=== PATIENT | male | born 1985 ===

== ENCOUNTER 2018-07-26 08:39 | Emergency (ER) | payer BC ==
[2018-07-26] MEDS ORDERED: Cyclobenzaprine 10 MG Tab PO ONE (09:18)
[2018-07-26] MEDS ORDERED: Ketorolac 60 MG/2 ML SDV IM ONE (09:18)
--- NOTE | 2018-07-26 09:48 | EDM.PDOC ---
ED HPI GENERAL MEDICAL PROBLEM - General Chief Complaint: Back Pain or Injury Stated Complaint: BACK PAIN Time Seen by Provider: 07/26/18 08:49 Source of Information: Reports: Patient History Limitations: Reports: No Limitations - History of Present Illness INITIAL COMMENTS - FREE TEXT/NARRATIVE: History of present illness: []Patient was moving a couch 2 days ago and hurt his lower back. He has pain radiating down his left buttock down to his left posterior knee. He denies any numbness, tingling, urinary or fecal incontinence. Is not had previous back pain prior to this. Review of systems: As per history of present illness and below otherwise all systems reviewed and negative. Past medical history: As per history of present illness and as reviewed below otherwise noncontributory. Surgical history: As per history of present illness and as reviewed below otherwise noncontributory. Social history: No reported history of drug or alcohol abuse. Family history: As per history of present illness and as reviewed below otherwise noncontributory. Physical exam: General: Well developed, well nourished in NAD HEENT: Atraumatic, normocephalic, pupils reactive, negative for conjunctival pallor or scleral icterus, mucous membranes moist, throat clear, neck supple, nontender, trachea midline. Lungs: Clear to auscultation, breath sounds equal bilaterally, chest nontender. Heart: S1S2, regular, negative for clicks, rubs, or JVD. Abdomen: NABS, Soft, nondistended, nontender. Negative for masses or hepatosplenomegaly. Negative for costovertebral tenderness. Pelvis: Stable nontender. Genitourinary: Deferred. Rectal: Deferred. Extremities: Atraumatic, negative for cords or calf pain. Neurovascular unremarkable. Neuro: Awake, alert, oriented. Cranial nerves II through XII unremarkable. Cerebellum unremarkable. Motor and sensory unremarkable throughout. Exam nonfocal. Straight leg raise negative Skin:warm and dry Diagnostics: None Therapeutics: Toradol, Flexeril ED Course: stable Impression: Low back pain with left-sided sciatica Prescriptions: Flexeril, diclofenac Plan: Use ice to back 20-30 minutes at a time frequently, Take meds as directed, follow up with your primary care physician, return to ER if symptoms worsen or change. Definitive disposition and diagnosis as appropriate pending reevaluation and review of above. left back pain Pain Score (Numeric/FACES): 9 - Related Data Allergies Allergy/AdvReac Type Severity Reaction Status Date / Time Sulfa (Sulfonamide Allergy Airway Verified 08/15/15 15:42 Antibiotics) Tightness Home Meds: Home Meds ClonazePAM [KlonoPIN] 1 tab PO DAILY PRN 08/15/15 [History] Lisinopril [Prinivil] 1 tab PO DAILY 08/15/15 [History] Cyclobenzaprine [Flexeril] 10 mg PO BID PRN #12 tab 07/26/18 [Rx] Diclofenac Sodium [Voltaren] 75 mg PO BIDMEALS PRN #20 tab.cr 07/26/18 [Rx] Metoprolol Succinate 50 mg PO DAILY 07/26/18 [History] Past Medical History Cardiovascular History: Reports: Hypertension Musculoskeletal History: Reports: Other (See Below) Other Musculoskeletal History: left shoulder pain since 02/2015 Psychiatric History: Reports: ADD - Infectious Disease History Infectious Disease History: Reports: Chicken Pox - Past Surgical History HEENT Surgical History: Reports: Adenoidectomy, Myringotomy w Tube(s), Tonsillectomy, Other (See Below) Social & Family History - Family History Family Medical History: Noncontributory - Tobacco Use Smoking Status *Q: Former Smoker Used Tobacco, but Quit: Yes Month/Year Tobacco Last Used: 2017 - Recreational Drug Use Recreational Drug Use: No ED ROS GENERAL - Review of Systems Review Of Systems: ROS reveals no pertinent complaints other than HPI. ED EXAM,LOWER BACK PAIN/INJURY - Physical Exam Exam: See Below Course - Vital Signs Last Recorded V/S: Last Vital Signs Temp 98 F 07/26/18 09:06 Pulse 79 07/26/18 09:06 Resp 18 07/26/18 09:06 BP 123/84 07/26/18 09:06 Pulse Ox 100 07/26/18 09:06 - Orders/Labs/Meds Meds: Medications Discontinued Medications Generic Name Dose Route Start Last Admin Trade Name Freq PRN Reason Stop Dose Admin Cyclobenzaprine HCl 10 mg 07/26/18 09:18 07/26/18 09:40 Flexeril PO 07/26/18 09:19 10 mg ONETIME ONE Administration Ketorolac Tromethamine 60 mg 07/26/18 09:18 07/26/18 09:39 Toradol IM 07/26/18 09:19 60 mg ONETIME ONE Administration Departure - Departure Time of Disposition: 10:34 Disposition: Home, Self-Care 01 Condition: Good Clinical Impression: Left sided sciatica - Discharge Information *PRESCRIPTION DRUG MONITORING PROGRAM REVIEWED*: No *COPY OF PRESCRIPTION DRUG MONITORING REPORT IN PATIENT DEXTER: No Prescriptions: Cyclobenzaprine [Flexeril] 10 mg PO BID PRN #12 tab PRN Reason: Pain Diclofenac Sodium [Voltaren] 75 mg PO BIDMEALS PRN #20 tab.cr PRN Reason: Pain Referrals: PCP,None [Primary Care Provider] - Forms: ED Department Discharge Additional Instructions: The following information is given to patients seen in the emergency department who are being discharged to home. This information is to outline your options for follow-up care. We provide all patients seen in our emergency department with a follow-up referral. The need for follow-up, as well as the timing and circumstances, are variable depending upon the specifics of your emergency department visit. If you don't have a primary care physician on staff, we will provide you with a referral. We always advise you to contact your personal physician following an emergency department visit to inform them of the circumstance of the visit and for follow-up with them and/or the need for any referrals to a consulting specialist. The emergency department will also refer you to a specialist when appropriate. This referral assures that you have the opportunity for follow-up care with a specialist. All of these measure are taken in an effort to provide you with optimal care, which includes your follow-up. Under all circumstances we always encourage you to contact your private physician who remains a resource for coordinating your care. When calling for follow-up care, please make the office aware that this follow-up is from your recent emergency room visit. If for any reason you are refused follow-up, please contact the [facility] Emergency Department at and asked to speak to the emergency department charge nurse. Take meds as directed, follow up with your primary care physician, return to ER if symptoms worsen or change. [facility] Primary Care [address] [place] [id number]
[2018-07-26 15:10] VITALS: BP 119/61
== END 2018-07-26 15:07 | disposition home or self-care (01) ==
LOC: MW.ED 08:39
DX: M54.42 Lumbago with sciatica, left side (principal); I10 Essential (primary) hypertension; Z88.2 Allergy status to sulfonamides; Z96.22 Myringotomy tube(s) status; Z98.890 Other specified postprocedural states; Z87.891 Personal history of nicotine dependence
CPT/HCPCS: 96372; 99282; A9270; J1885

== ENCOUNTER 2018-08-03 20:23 | Emergency (ER) | payer BC ==
--- NOTE | 2018-08-03 20:37 | EDM.PDOC ---
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 Otherwise worsened by movement He was seen in the ER on 07/26/2018 prescribed Flexeril and diclofenac No fever nausea vomiting chills sweats no footdrop saddle anesthesia or bowel or urine symptoms ] Review of systems: As per history of present illness and below otherwise all systems reviewed and negative. Past medical history: As per history of present illness and as reviewed below otherwise noncontributory. Surgical history: As per history of present illness and as reviewed below otherwise noncontributory. Social history: No reported history of drug or alcohol abuse. Family history: As per history of present illness and as reviewed below otherwise noncontributory. Physical exam: HEENT: Atraumatic, normocephalic, pupils reactive, negative for conjunctival pallor or scleral icterus, mucous membranes moist, throat clear, neck supple, nontender, trachea midline. Lungs: Clear to auscultation, breath sounds equal bilaterally, chest nontender. Heart: S1S2, regular, negative for clicks, rubs, or JVD. Abdomen: Soft, nondistended, nontender. Negative for masses or hepatosplenomegaly. Negative for costovertebral tenderness. Pelvis: Stable nontender. Genitourinary: Deferred. Rectal: Deferred. Extremities: Atraumatic, negative for cords or calf pain. Neurovascular unremarkable. Straight leg raise to 30 did produce radiculopathy sciatic distribution Neuro: Awake, alert, oriented. Cranial nerves II through XII unremarkable. Cerebellum unremarkable. Motor and sensory unremarkable throughout. Exam nonfocal. No footdrop or saddle anesthesia Diagnostics: [Lumbar spine ] Therapeutics: [[facility] 7.5 by mouth now [facility]] Ice and heat Follow-up with primary care Impression: [Low back pain] Left sciatic distribution pain Definitive disposition and diagnosis as appropriate pending reevaluation and review of above. left flack Pain Score (Numeric/FACES): 10 - Related Data Allergies Allergy/AdvReac Type Severity Reaction Status Date / Time Sulfa (Sulfonamide Allergy Airway Verified 08/15/15 15:42 Antibiotics) Tightness Home Meds: Home Meds ClonazePAM [KlonoPIN] 1 tab PO DAILY PRN 08/15/15 [History] Lisinopril [Prinivil] 1 tab PO DAILY 08/15/15 [History] Cyclobenzaprine [Flexeril] 10 mg PO BID PRN #12 tab 07/26/18 [Rx] Diclofenac Sodium [Voltaren] 75 mg PO BIDMEALS PRN #20 tab.cr 07/26/18 [Rx] Metoprolol Succinate 50 mg PO DAILY 07/26/18 [History] Past Medical History Cardiovascular History: Reports: Hypertension Musculoskeletal History: Reports: Other (See Below) Other Musculoskeletal History: left shoulder pain since 02/2015 Psychiatric History: Reports: ADD - Infectious Disease History Infectious Disease History: Reports: Chicken Pox - Past Surgical History HEENT Surgical History: Reports: Adenoidectomy, Myringotomy w Tube(s), Tonsillectomy, Other (See Below) Social & Family History - Family History Family Medical History: Noncontributory ED ROS GENERAL - Review of Systems Review Of Systems: See Below ED EXAM, GENERAL - Physical Exam Exam: See Below Course - Vital Signs Last Recorded V/S: Last Vital Signs Temp 98.4 F 08/03/18 20:25 Pulse 88 08/03/18 20:25 Resp 18 08/03/18 20:25 BP 133/63 08/03/18 20:25 Pulse Ox 100 08/03/18 20:25 - Orders/Labs/Meds Meds: Medications Discontinued Medications Generic Name Dose Route Start Last Admin Trade Name Freq PRN Reason Stop Dose Admin Hydrocodone Bitart/Acetaminophen 1 tab 08/03/18 20:50 08/03/18 20:59 [facility] 325-7.5 Mg PO 08/03/18 20:51 1 tab NOW STA Administration Departure - Departure Time of Disposition: 21:43 Disposition: Home, Self-Care 01 Condition: Good Clinical Impression: Low back pain - Discharge Information Referrals: PCP,Unknown [Primary Care Provider] - Forms: ED Department Discharge Additional Instructions: Medication as prescribed Return if symptoms persist or worsen Follow-up with primary care in 2 weeks sooner as needed [facility] - Primary Care [address] [place] [id number] The following information is given to patients seen in the emergency department who are being discharged to home. This information is to outline your options for follow-up care. We provide all patients seen in our emergency department with a follow-up referral. The need for follow-up, as well as the timing and circumstances, are variable depending upon the specifics of your emergency department visit. If you don't have a primary care physician on staff, we will provide you with a referral. We always advise you to contact your personal physician following an emergency department visit to inform them of the circumstance of the visit and for follow-up with them and/or the need for any referrals to a consulting specialist. The emergency department will also refer you to a specialist when appropriate. This referral assures that you have the opportunity for follow-up care with a specialist. All of these measure are taken in an effort to provide you with optimal care, which includes your follow-up. Under all circumstances we always encourage you to contact your private physician who remains a resource for coordinating your care. When calling for follow-up care, please make the office aware that this follow-up is from your recent emergency room visit. If for any reason you are refused follow-up, please contact the [facility] emergency department at and asked to speak to the emergency department charge nurse.
[2018-08-03 20:44] VITALS: BP 133/63
[2018-08-03] MEDS ORDERED: Acetaminophen/HYDROcodone 325-7.5 MG Tab PO STA (20:50)
--- NOTE | 2018-08-03 21:02 | CR ---
INDICATION: Back pain TECHNIQUE: Lumbar spine 3 view COMPARISON: None FINDINGS: Bones: Alignment is normal. No fractures or significant bone lesions. Anterior endplate osteophytes are present at L1 and L2. Joints: Disc spaces and facets are unremarkable. Soft tissues: Unremarkable. IMPRESSION: Unremarkable lumbar spine. No acute or specific finding to explain pain. Dictated by Ian Gonzalez MD @ Aug 03 2018 8:59PM Signed by Dr. Ian Gonzalez @ Aug 03 2018 9:01PM
== END 2018-08-03 21:55 | disposition home or self-care (01) ==
LOC: MW.ED 20:23
DX: M54.42 Lumbago with sciatica, left side (principal); I10 Essential (primary) hypertension; Z88.2 Allergy status to sulfonamides; Z79.899 Other long term (current) drug therapy; Z98.890 Other specified postprocedural states; Z96.22 Myringotomy tube(s) status
CPT/HCPCS: 72100; 99284; A9270; 99283

== ENCOUNTER 2018-09-13 22:19 | Emergency (ER) | payer BC ==
[2018-09-13 23:08] VITALS: BP 125/83
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
[2018-09-13] MEDS ORDERED: Ketorolac 60 MG/2 ML SDV IM ONE (23:18)
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
--- NOTE | 2018-09-14 00:47 | CT ---
CT CERVICAL SPINE DATE: 09/13/2018 HISTORY: Trauma. TECHNIQUE: Helical CT acquisition of the cervical spine was performed. Rodríguez and sagittal reformations were performed and interpreted. COMPARISON: None. FINDINGS: There is no evidence of acute displaced fracture or dislocation of the cervical spine. There is straightening of the normal cervical lordosis. The vertebral body height is maintained. There are scattered degenerative changes in the cervical spine. The visualized prevertebral soft tissues are unremarkable. The visualized lung apices are unremarkable. IMPRESSION: No acute displaced fracture or dislocation of the cervical spine. Please note that all CT scans at this facility use dose modulation, iterative reconstruction, and/or weight-based dosing when appropriate to reduce radiation dose to as low as reasonably achievable. Dictated by: Darell Narvaez MD @ 09/14/2018 00:46:47 (Electronically Signed)
== END 2018-09-14 01:20 | disposition home or self-care (01) ==
LOC: MW.ED 22:19
DX: S16.1XXA Strain of muscle, fascia and tendon at neck level, initial encounter (principal); R11.0 Nausea; I10 Essential (primary) hypertension; Z96.22 Myringotomy tube(s) status; Z98.890 Other specified postprocedural states; Z79.899 Other long term (current) drug therapy; Z88.2 Allergy status to sulfonamides; V57.6XXA Passenger in pick-up truck or van injured in collision with fixed or stationary object in traffic accident, initial encounter
CPT/HCPCS: 70450; 72125; 96372; 99283; J1885; 99284

== ENCOUNTER 2019-03-04 22:52 | Emergency (ER) | payer BC ==
--- NOTE | 2019-03-04 23:21 | EDM.PDOC ---
ED HPI GENERAL MEDICAL PROBLEM - General Chief Complaint: Lower Extremity Injury/Pain Stated Complaint: PAIN/SWELLING IN FOOT Time Seen by Provider: 03/04/19 23:15 Source of Information: Reports: Patient - History of Present Illness INITIAL COMMENTS - FREE TEXT/NARRATIVE: Patient presents to the ER secondary to a palpable nodule in his left foot. It has been on the plantar aspect of his left foot for quite a while but is now getting larger and is very painful. left sole Pain Score (Numeric/FACES): 8 - Related Data Allergies Allergy/AdvReac Type Severity Reaction Status Date / Time Sulfa (Sulfonamide Allergy Airway Verified 03/04/19 23:03 Antibiotics) Tightness Home Meds: Home Meds lisinopriL [Prinivil] 1 tab PO DAILY 08/15/15 [History] Metoprolol Succinate 50 mg PO DAILY 07/26/18 [History] Dextroamphetamine/Amphetamine [Adderall 10 mg Tablet] 10 mg PO DAILY 03/04/19 [ History] Past Medical History HEENT History: Reports: None Cardiovascular History: Reports: Hypertension Respiratory History: Reports: None Gastrointestinal History: Reports: None Genitourinary History: Reports: None Musculoskeletal History: Reports: Other (See Below) Other Musculoskeletal History: left shoulder pain since 02/2015 Neurological History: Reports: None Psychiatric History: Reports: ADD Endocrine/Metabolic History: Reports: None Insulin Pump Model and Jacket Changer: None Hematologic History: Reports: None Immunologic History: Reports: None Oncologic (Cancer) History: Reports: None Dermatologic History: Reports: None - Infectious Disease History Infectious Disease History: Reports: None - Past Surgical History Head Surgeries/Procedures: Reports: None HEENT Surgical History: Reports: Adenoidectomy, Myringotomy w Tube(s), Tonsillectomy, Other (See Below) Male Surgical History: Reports: None Social & Family History - Family History Family Medical History: Noncontributory - Tobacco Use Smoking Status *Q: Never Smoker - Caffeine Use Caffeine Use: Reports: Coffee, Soda - Recreational Drug Use Recreational Drug Use: No Review of Systems - Review of Systems Review Of Systems: See Below (Positive for left foot nodule and pain) ED EXAM, GENERAL - Physical Exam Exam: See Below Free Text/Narrative:: Constitutional: No acute distress, Non-toxic appearance. HEENT: Normocephalic, Atraumatic, EOMI Neck: Normal range of motion, No stridor, trachea midline Respiratory: No respiratory distress, No tachypnea Cardiovascular: Deferred Gastrointestinal: Deferred Genital / Urinary: Deferred Musculoskeletal: All four extremities present and atraumatic, on the plantar aspect of the left foot just under the dermis there is a very mobile, cystic- like structure without any surrounding erythema or induration and it is tender Back: FROM Integument: Warm, Dry, Color is ethnicity appropriate, No rash. Neuro: Alert, Awake, No focal deficits noted Psych: Affect, Judgement, mood normal Course - Vital Signs Text/Narrative:: This appears to be a cyst on the plantar aspect of the patient's left foot. There are no signs of any infectious process. The patient wanted me to remove it here in the ER but I explained to him in detail that while I can do that, it is the follow-up that is just as important. Therefore, the patient will be provided with some resources for orthopedic and/or podiatry follow-up. Last Recorded V/S: Last Vital Signs Temp 36.6 C 03/04/19 23:00 Pulse 88 03/04/19 23:00 Resp 18 03/04/19 23:00 BP 121/74 03/04/19 23:00 Pulse Ox 97 03/04/19 23:00 Departure - Departure Time of Disposition: 23:19 Disposition: Home, Self-Care 01 Clinical Impression: Ganglion cyst of left foot - Discharge Information Referrals: Michelle Staton PA [Primary Care Provider] - Additional Instructions: Follow-up with any of the resources provided to you. Activity as tolerated. The Ibuprofen and Tylenol for discomfort. Sepsis Event Note - Evaluation Sepsis Screening Result: No Definite Risk - Focused Exam Vital Signs: Vital Signs Temp Pulse Resp BP Pulse Ox 03/04/19 23:00 36.6 C 88 18 121/74 97 Date Exam was Performed: 03/04/19 Time Exam was Performed: 23:15
[2019-03-04 23:33] VITALS: BP 110/69; PULSE 100
== END 2019-03-04 23:34 | disposition home or self-care (01) ==
LOC: MW.ED 22:52
DX: M67.472 Ganglion, left ankle and foot (principal); I10 Essential (primary) hypertension; Z88.2 Allergy status to sulfonamides; Z79.899 Other long term (current) drug therapy
CPT/HCPCS: 99283